=== PATIENT | male | born 1990 | race Caucasian/White ===

== ENCOUNTER → 2016-10-22 | Outpatient (REF) | payer SELFPAY ==
[2016-10-29 10:13] LABS: BENZODIAZEPINES, URINE SCREEN Negative ng/mL (Cutoff=200); METHADONE, URINE SCREEN Negative ng/mL (Cutoff=300); pH, URINE 6.6 (4.5-8.9)
== END | disposition home or self-care (01) ==
LOC: M SFHCPLAZ 16:57
PROVIDERS: ATTEND Family Medicine
DX: R35.0 Frequency of micturition (principal); R36.9 Urethral discharge, unspecified; F15.10 Other stimulant abuse, uncomplicated

== ENCOUNTER 2016-10-24 02:57 | Emergency (ER) | payer SELFPAY ==
[2016-10-24] MEDS ORDERED: ALPRAZolam 0.25 MG TAB As Ordered ONE (05:01)
--- NOTE | 2016-10-24 05:14 | EDDOCDS ---
Physician Documentation [facility] Name: Colt Wilson Age: 26 yrs Sex: Male : 1990 Arrival Date: 10/24/2016 Time: 02:57 Bed [facility] Private MD: Disposition: 10/24/16 04:30 Discharged to Home/Self Care. Impression: Adverse effect of amphetamines - meth withdrawl. - Condition is Stable. - Discharge Instructions: Stimulant Use Disorder-Methamphetamines. - Prescriptions for Xanax 0.5 mg Oral Tablet - take 1 tablet by ORAL route every 8 hours As needed MDD: 3 tabs; 10 tablet. - Medication Reconciliation, Local Pharmacy Hours form. - Follow up: Referral list, As provided by PFS; When: 1 - 2 days; Reason: Continuance of care. - Problem is an acute exacerbation. - Symptoms have improved. Historical: - Allergies: No known drug Allergies; - Home Meds: 1. none - PMHx: drug abuse; - PSHx: Hernia repair- Umbilical; - Social history: Smoking status: Chewing Tobacco No barriers to communication noted, The patient speaks fluent Slovenian, Speaks appropriately for age. - Family history: Not pertinent. - : The pt / caregiver states he / she is not on anticoagulants. Home medication list is obtained from the patient. - Exposure Risk Screening:: None identified. Vital Signs: 10/24 03:17 BP 138 / 97; Pulse 87; Resp 16; Temp 95.9; Pulse Ox 96% on R/A; Weight 65.77 kg / 145 cz lbs; Height 5 ft. 10 in. (177.80 cm); 05:11 BP 124 / 50; Pulse 76; Resp 18; Temp 96.9(T); Pulse Ox 99% on R/A; Pain 0/10; cp1 03:17 Body Mass Index 20.81 (65.77 kg, 177.80 cm) cz MDM: 03:13 [facility] Payment Agreement was scanned into [employer] and attached to record. hs2 04:29 ALPRAZolam Tablet 0.25 mg PO once ordered. mm11 05:09 Financial registration complete. hs2 Administered Medications: 05:11 Drug: ALPRAZolam 0.25 mg [alprazolam 0.25 mg tablet (1 tabs)] Route: PO; cp1 Signatures: Fernando Cabezas, RN RN cz Martin Ramirez, DO mm11 Mala Bailey,INTERNATIONAL TAX MANAGER INTERNATIONAL TAX MANAGER cp1 Dorothy Serna, Reg Reg hs2 The chart was reviewed and I authenticate all verbal orders and agree with the evaluation and treatment provided.Attachments: 03:13 [facility] Payment Agreement hs2 MTDD
--- NOTE | 2016-10-24 05:14 | EDDOCDS ---
Nurse's Notes [facility] Name: Colt Wilson Age: 26 yrs Sex: Male : 1990 Arrival Date: 10/24/2016 Time: 02:57 Bed [facility] Private MD: Diagnosis: Adverse effect of amphetamines-meth withdrawl Presentation: 10/24 03:09 Presenting complaint: Patient states: he uses meth last used Tuesday morning having cz anxiety issues rambling thoughts pt denies SI/HI. pt states has quit using before but keeps relapsing. Mental Health Triage Level: Level 1- Pt displays no suicidal or homicidal ideations and does not appear to be a danger to self or others. Adult Sepsis Screening: The patient does not have new or worsening altered mentation. Patient's respiratory rate is less than 22. Systolic blood pressure is greater than 100. Patient has a qSOFA score of 0- Negative Sepsis Screen. Mental Health Triage Level: Level 1- Pt displays no suicidal or homicidal ideations and does not appear to be a danger to self or others. Suicide/Homicide risk assessment- the patient denies having any suicidal and/or homicidal ideations and does not present with any other emotional, behavioral or mental health complaints. Status: Patient is not a director nursing service or dependent. Transition of care: patient was not received from another setting of care. 03:09 Acuity: CRISTELA Level 3 cz 03:09 Method Of Arrival: Walkin/Carried/Asstd cz Triage Assessment: 03:17 General: Appears distressed, Behavior is anxious. Pain: Denies pain. HIV screening [facility] for this visit Offered previously. Historical: - Allergies: No known drug Allergies; - Home Meds: 1. none - PMHx: drug abuse; - PSHx: Hernia repair- Umbilical; - Social history: Smoking status: Chewing Tobacco No barriers to communication noted, The patient speaks fluent Indonesian, Speaks appropriately for age. - Family history: Not pertinent. - : The pt / caregiver states he / she is not on anticoagulants. Home medication list is obtained from the patient. - Exposure Risk Screening:: None identified. Screenin:11 Screening information is obtained from the patient. Fall risk: No risks identified. cp1 Assistance ADL's: requires no assistance with activities of daily living. Abuse/DV Screen: The patient / caregiver reports he/she is: not in a situation that causes fear, pain or injury. Nutritional screening: No deficits noted. Advance Directives: Unable to assess Advance Directive status due to pt condition. home support is inadequate. Assessment: 04:09 General: Appears comfortable, Behavior is anxious, cooperative. Pain: Denies pain. cp1 Respiratory: Respiratory effort is even, unlabored, Respiratory pattern is regular, symmetrical. 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 He jl reports last use was 8 or 9:00 am yesterday & that he has been "coming down" since. He describes a long h/o struggles with this addiction & how it has cost him relationships, including his & children. He reports currently living with his parents & was given a ride here by a friend. He reports having an extensive treatment hx, including 2 residential inpatient programs, as well as outpatient programs. He denies having any thoughts of harming himself or anyone else & denies having any mental health problems, noting that his concerns are solely with his addiction. He states that he saw his PCP (Dr. Rueda) on Tuesday, who made immediate arrangements for him to see Lucia at [facility]. He states that this went well & that it was recommended that he continue with care there & then another inpatient program. He is aware that [facility] does not offer any inpatient addictions services & that no rehab may be arranged from the ED this morning. He has been encouraged to follow up with [facility] again tomorrow (Tuesday) & has been provided with taxi voucher to ensure safe transport home. He denies having any additional D/C planning needs at this time. Support extended. Vital Signs: 03:17 BP 138 / 97; Pulse 87; Resp 16; Temp 95.9; Pulse Ox 96% on R/A; Weight 65.77 kg; Height cz 5 ft. 10 in. (177.80 cm); 05:11 BP 124 / 50; Pulse 76; Resp 18; Temp 96.9(T); Pulse Ox 99% on R/A; Pain 0/10; cp1 03:17 Body Mass Index 20.81 (65.77 kg, 177.80 cm) cz Vitals: 03:17 Log In Time: October 24, 2016 at 02:57. cz ED Course: 03:08 Patient visited by Renate Moran. gjb 03:08 Patient moved to Waiting gjb 03:13 [facility] Payment Agreement was scanned into [employer] and attached to record. hs2 03:14 Triage Initiated cz 03:19 Patient moved to [facility] cz 03:30 Patient visited by Mala Bailey LPN. cp1 03:35 Patient visited by Alberto Mosqueda. tr 03:45 Patient visited by Alberto Mosqueda. tr 03:45 Martin Ramirez DO is Attending Physician. mm11 03:45 Patient visited by Martin Ramirez DO. mm11 03:48 Patient visited by Alberto Mosqueda. tr 03:58 Patient visited by Alberto Mosqueda. tr 04:18 Patient visited by Alberto Mosqueda. tr 04:29 Patient visited by Martin Ramirez DO. mm11 04:30 Referral list, As provided by [facility] is Referral Physician. mm11 04:32 Patient visited by Alberto Mosqueda. tr 04:44 Patient visited by Alberto Mosqueda. tr 04:58 Patient visited by Alberto Mosqueda. tr 05:11 The patient / caregiver is instructed regarding the plan of care and ED course. cp1 05:11 No IV's were initiated during this patient's visit. No procedures done that require cp1 assistance. Administered Medications: 05:11 Drug: ALPRAZolam 0.25 mg [alprazolam 0.25 mg tablet (1 tabs)] Route: PO; cp1 Order Results: There are currently no results for this order. Outcome: 04:30 Discharge ordered by Provider. mm11 05:11 Discharge Assessment: Patient awake, alert and oriented x 3. No cognitive and/or cp1 functional deficits noted. Patient verbalized understanding of disposition instructions. patient administered narcotics - yes. Pt provided with safe discharge. The following High Risk Discharge criteria are identified: None. Discharged to home ambulatory. Condition: stable. Discharge instructions given to patient, Instructed on discharge instructions, follow up and referral plans. medication usage, Demonstrated understanding of instructions, medications, Pt was receptive of discharge instructions/ teaching. Prescriptions given X 1. No special radiology studies were completed. Property sent home with patient. :Personal belongings accompany Pt. 05:12 Patient left the ED. cp1 Signatures: Fernando Cabezas, RN RN cz Dustin Pratt, PSA PSA Alberto Smith Matthew, DO mm11 Mala Bailey LPN BIOSTATISTICS TEACHER cp1 Renate Moranb Dorothy Serna, Reg Reg hs2 MTDD
--- NOTE | 2016-10-26 12:28 | EDDOCDS ---
Physician Documentation [facility] Name: Colt Wilson Age: 26 yrs Sex: Male : 1990 Arrival Date: 10/24/2016 Time: 02:57 Bed [facility] Private MD: Disposition: 10/24/16 04:30 Discharged to Home/Self Care. Impression: Adverse effect of amphetamines - meth withdrawl. - Condition is Stable. - Discharge Instructions: Stimulant Use Disorder-Methamphetamines. - Prescriptions for Xanax 0.5 mg Oral Tablet - take 1 tablet by ORAL route every 8 hours As needed MDD: 3 tabs; 10 tablet. - Medication Reconciliation, Local Pharmacy Hours form. - Follow up: Referral list, As provided by PFS; When: 1 - 2 days; Reason: Continuance of care. - Problem is an acute exacerbation. - Symptoms have improved. Historical: - Allergies: No known drug Allergies; - Home Meds: 1. none - PMHx: drug abuse; - PSHx: Hernia repair- Umbilical; - Social history: Smoking status: Chewing Tobacco No barriers to communication noted, The patient speaks fluent Ethiopian, Speaks appropriately for age. - Family history: Not pertinent. - : The pt / caregiver states he / she is not on anticoagulants. Home medication list is obtained from the patient. - Exposure Risk Screening:: None identified. Vital Signs: 10/24 03:17 BP 138 / 97; Pulse 87; Resp 16; Temp 95.9; Pulse Ox 96% on R/A; Weight 65.77 kg / 145 cz lbs; Height 5 ft. 10 in. (177.80 cm); 05:11 BP 124 / 50; Pulse 76; Resp 18; Temp 96.9(T); Pulse Ox 99% on R/A; Pain 0/10; cp1 03:17 Body Mass Index 20.81 (65.77 kg, 177.80 cm) cz MDM: 03:13 [place] [place] Agreement was scanned into [email or web address] and attached to record. hs2 04:29 ALPRAZolam Tablet 0.25 mg PO once ordered. mm11 05:09 Financial registration complete. hs2 07:46 T-Sheet-- Draft Copy was scanned into [email or web address] and attached to record. [facility] Administered Medications: 05:11 Drug: ALPRAZolam 0.25 mg [alprazolam 0.25 mg tablet (1 tabs)] Route: PO; cp1 05:12 Follow up: Response: Pt left department before re-evaluation is appropriate cp1 Signatures: Fernando Cabezas, KATELYNN RN cz Martin Ramirez, DO mm11 Mala Bailey LPN LPN cp1 Dorothy Serna, Reg Reg hs2 Lorenza Kuar [facility] The chart was reviewed and I authenticate all verbal orders and agree with the evaluation and treatment provided.Attachments: 03:13 [facility] Payment Agreement hs2 07:46 T-Sheet-- Draft Copy [facility] Chart Complete MTDD
--- NOTE | 2016-10-26 12:28 | EDDOCDS ---
Physician Documentation [facility] Name: Colt Wilson Age: 26 yrs Sex: Male : 1990 Arrival Date: 10/24/2016 Time: 02:57 Bed [facility] Private MD: Disposition: 10/24/16 04:30 Discharged to Home/Self Care. Impression: Adverse effect of amphetamines - meth withdrawl. - Condition is Stable. - Discharge Instructions: Stimulant Use Disorder-Methamphetamines. - Prescriptions for Xanax 0.5 mg Oral Tablet - take 1 tablet by ORAL route every 8 hours As needed MDD: 3 tabs; 10 tablet. - Medication Reconciliation, Local Pharmacy Hours form. - Follow up: Referral list, As provided by PFS; When: 1 - 2 days; Reason: Continuance of care. - Problem is an acute exacerbation. - Symptoms have improved. Historical: - Allergies: No known drug Allergies; - Home Meds: 1. none - PMHx: drug abuse; - PSHx: Hernia repair- Umbilical; - Social history: Smoking status: Chewing Tobacco No barriers to communication noted, The patient speaks fluent Dutch, Speaks appropriately for age. - Family history: Not pertinent. - : The pt / caregiver states he / she is not on anticoagulants. Home medication list is obtained from the patient. - Exposure Risk Screening:: None identified. Vital Signs: 10/24 03:17 BP 138 / 97; Pulse 87; Resp 16; Temp 95.9; Pulse Ox 96% on R/A; Weight 65.77 kg / 145 cz lbs; Height 5 ft. 10 in. (177.80 cm); 05:11 BP 124 / 50; Pulse 76; Resp 18; Temp 96.9(T); Pulse Ox 99% on R/A; Pain 0/10; cp1 03:17 Body Mass Index 20.81 (65.77 kg, 177.80 cm) cz MDM: 03:13 [place] [place] Agreement was scanned into [employer] and attached to record. hs2 04:29 ALPRAZolam Tablet 0.25 mg PO once ordered. mm11 05:09 Financial registration complete. hs2 07:46 T-Sheet-- Draft Copy was scanned into [employer] and attached to record. [facility] Administered Medications: 05:11 Drug: ALPRAZolam 0.25 mg [alprazolam 0.25 mg tablet (1 tabs)] Route: PO; cp1 05:12 Follow up: Response: Pt left department before re-evaluation is appropriate cp1 Signatures: Fernando Cabezas, KATELYNN RN cz Martin Ramirez, DO mm11 Mala Bailey LPN LPN cp1 Dorothy Serna, Reg Reg hs2 Lorenza Kaur [facility] The chart was reviewed and I authenticate all verbal orders and agree with the evaluation and treatment provided.Attachments: 03:13 [facility] Payment Agreement hs2 07:46 T-Sheet-- Draft Copy [facility] Chart Complete MTDD
--- NOTE | 2016-10-26 12:28 | EDDOCDS ---
Nurse's Notes [facility] Name: Colt Wilson Age: 26 yrs Sex: Male : 1990 Arrival Date: 10/24/2016 Time: 02:57 Bed [facility] Private MD: Diagnosis: Adverse effect of amphetamines-meth withdrawl Presentation: 10/24 03:09 Presenting complaint: Patient states: he uses meth last used Tuesday morning having cz anxiety issues rambling thoughts pt denies SI/HI. pt states has quit using before but keeps relapsing. Mental Health Triage Level: Level 1- Pt displays no suicidal or homicidal ideations and does not appear to be a danger to self or others. Adult Sepsis Screening: The patient does not have new or worsening altered mentation. Patient's respiratory rate is less than 22. Systolic blood pressure is greater than 100. Patient has a qSOFA score of 0- Negative Sepsis Screen. Mental Health Triage Level: Level 1- Pt displays no suicidal or homicidal ideations and does not appear to be a danger to self or others. Suicide/Homicide risk assessment- the patient denies having any suicidal and/or homicidal ideations and does not present with any other emotional, behavioral or mental health complaints. Status: Patient is not a water softener service supervisor or dependent. Transition of care: patient was not received from another setting of care. 03:09 Acuity: CRISTELA Level 3 cz 03:09 Method Of Arrival: Walkin/Carried/Asstd cz Triage Assessment: 03:17 General: Appears distressed, Behavior is anxious. Pain: Denies pain. HIV screening [facility] for this visit Offered previously. Historical: - Allergies: No known drug Allergies; - Home Meds: 1. none - PMHx: drug abuse; - PSHx: Hernia repair- Umbilical; - Social history: Smoking status: Chewing Tobacco No barriers to communication noted, The patient speaks fluent Cook Islander, Speaks appropriately for age. - Family history: Not pertinent. - : The pt / caregiver states he / she is not on anticoagulants. Home medication list is obtained from the patient. - Exposure Risk Screening:: None identified. Screenin:11 Screening information is obtained from the patient. Fall risk: No risks identified. cp1 Assistance ADL's: requires no assistance with activities of daily living. Abuse/DV Screen: The patient / caregiver reports he/she is: not in a situation that causes fear, pain or injury. Nutritional screening: No deficits noted. Advance Directives: Unable to assess Advance Directive status due to pt condition. home support is inadequate. Assessment: 04:09 General: Appears comfortable, Behavior is anxious, cooperative. Pain: Denies pain. cp1 Respiratory: Respiratory effort is even, unlabored, Respiratory pattern is regular, symmetrical. 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 He jl reports last use was 8 or 9:00 am yesterday & that he has been "coming down" since. He describes a long h/o struggles with this addiction & how it has cost him relationships, including his & children. He reports currently living with his parents & was given a ride here by a friend. He reports having an extensive treatment hx, including 2 correction inpatient programs, as well as outpatient programs. He denies having any thoughts of harming himself or anyone else & denies having any mental health problems, noting that his concerns are solely with his addiction. He states that he saw his PCP (Dr. Rueda) on Tuesday, who made immediate arrangements for him to see Lucia at [facility]. He states that this went well & that it was recommended that he continue with care there & then another inpatient program. He is aware that [facility] does not offer any inpatient addictions services & that no rehab may be arranged from the ED this morning. He has been encouraged to follow up with [facility] again tomorrow (Tuesday) & has been provided with taxi voucher to ensure safe transport home. He denies having any additional D/C planning needs at this time. Support extended. Vital Signs: 03:17 BP 138 / 97; Pulse 87; Resp 16; Temp 95.9; Pulse Ox 96% on R/A; Weight 65.77 kg; Height cz 5 ft. 10 in. (177.80 cm); 05:11 BP 124 / 50; Pulse 76; Resp 18; Temp 96.9(T); Pulse Ox 99% on R/A; Pain 0/10; cp1 03:17 Body Mass Index 20.81 (65.77 kg, 177.80 cm) cz Vitals: 03:17 Log In Time: October 24, 2016 at 02:57. cz ED Course: 03:08 Patient visited by Renate Moran. gjb 03:08 Patient moved to Waiting gjb 03:13 [facility] Payment Agreement was scanned into [employer] and attached to record. hs2 03:14 Triage Initiated cz 03:19 Patient moved to [facility] cz 03:30 Patient visited by Mala Bailey LPN. cp1 03:35 Patient visited by Alberto Mosqueda. tr 03:45 Patient visited by Alberto Mosqueda. tr 03:45 Martin Ramirez DO is Attending Physician. mm11 03:45 Patient visited by Martin Ramirez DO. mm11 03:48 Patient visited by Alberto Mosqueda. tr 03:58 Patient visited by Alberto Mosqueda. tr 04:18 Patient visited by Alberto Mosqueda. tr 04:29 Patient visited by aMrtin Ramirez DO. mm11 04:30 Referral list, As provided by [facility] is Referral Physician. mm11 04:32 Patient visited by Alberto Mosqueda. tr 04:44 Patient visited by Alberto Mosqueda. tr 04:58 Patient visited by Alberto Mosqueda. tr 05:11 The patient / caregiver is instructed regarding the plan of care and ED course. cp1 05:11 No IV's were initiated during this patient's visit. No procedures done that require cp1 assistance. 06:03 Patient name changed from Colt\\S\\\\S\\Kraeger\\S\\ to Colt\\S\\Tariq\\S\\Kraeger. EDMS 07:46 T-Sheet-- Draft Copy was scanned into [employer] and attached to record. h Administered Medications: 05:11 Drug: ALPRAZolam 0.25 mg [alprazolam 0.25 mg tablet (1 tabs)] Route: PO; cp1 05:12 Follow up: Response: Pt left department before re-evaluation is appropriate cp1 Order Results: There are currently no results for this order. Outcome: 04:30 Discharge ordered by Provider. mm11 05:11 Discharge Assessment: Patient awake, alert and oriented x 3. No cognitive and/or cp1 functional deficits noted. Patient verbalized understanding of disposition instructions. patient administered narcotics - yes. Pt provided with safe discharge. The following High Risk Discharge criteria are identified: None. Discharged to home ambulatory. Condition: stable. Discharge instructions given to patient, Instructed on discharge instructions, follow up and referral plans. medication usage, Demonstrated understanding of instructions, medications, Pt was receptive of discharge instructions/ teaching. Prescriptions given X 1. No special radiology studies were completed. Property sent home with patient. :Personal belongings accompany Pt. 05:12 Patient left the ED. cp1 Signatures: Dispatcher [employer] EDMS Fernando Cabezas RN RN Dustin Gtz PSA PSA jl Rasmussen, Tim tr Maynard, Matthew, DO mm11 Mala Bailey,SOLAR SITE ASSESSMENT SPECIALIST SOLAR SITE ASSESSMENT SPECIALIST cp1 Renate Moran Hillary, Reg Reg hs2 Lorenza Kaur Chart Complete MTDD
== END 2016-10-24 05:12 | disposition home or self-care (01) ==
LOC: M ED 02:57
DX: F15.93 Other stimulant use, unspecified with withdrawal (principal); F17.220 Nicotine dependence, chewing tobacco, uncomplicated

== ENCOUNTER 2016-11-05 19:37 | Emergency (ER) | payer SELFPAY ==
[2016-11-05] MEDS ORDERED: OLANZapine 5 MG TAB As Ordered ONE (21:37)
[2016-11-05 21:52] LABS: ANION GAP 6 MEQ/L (8-16); BLOOD UREA NITROGEN 26 MG/DL (7-18); CALCIUM LEVEL 9.2 MG/DL (8.5-10.1); CARBON DIOXIDE LEVEL 31 MEQ/L (21-32); CHLORIDE LEVEL 103 MEQ/L (98-107); CREATININE FOR GFR 1.03 MG/DL (0.70-1.30); GLOMERULAR FILTRATION RATE > 60.0 (>60); GLUCOSE, FASTING 86 MG/DL (70-105); POTASSIUM SERUM 4.6 MEQ/L (3.5-5.1); SODIUM LEVEL 140 MEQ/L (136-145)
--- NOTE | 2016-11-05 22:47 | EDDOCDS ---
Nurse's Notes [facility] Name: Colt Wilson Age: 26 yrs Sex: Male : 1990 Arrival Date: 11/05/2016 Time: 19:37 Bed I8 / 16 Private MD: Zachariah Rueda D Diagnosis: Encounter for other general examination-chronic substance abuse Presentation: 11/05 19:56 Presenting complaint: Patient states: here for Xanax refill. Was seen here for refill rs3 on the . Was out of Xanax for 7 days. 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 Adult Sepsis Screening: The patient does not have new or worsening altered mentation. Patient's respiratory rate is less than 22. Systolic blood pressure is greater than 100. Patient has a qSOFA score of 0- Negative Sepsis Screen. Suicide/Homicide risk assessment- the patient denies having any suicidal and/or homicidal ideations and does not present with any other emotional, behavioral or mental health complaints. Status: Patient is not a maintenance service supervisor or dependent. Transition of care: patient was not received from another setting of care. 19:56 Acuity: CRISTELA Level 5 rs3 19:56 Method Of Arrival: Walkin/Carried/Asstd rs3 Triage Assessment: 20:02 General: Appears in no apparent distress. Pain: Denies pain. HIV screening NA for this rs3 visit Offered previously. Historical: - Allergies: no known allergies; - Home Meds: 1. Xanax 0.5 mg Oral tab 1 tab twice a day (Last dose: 10/29/2016) - PMHx: drug abuse; - PSHx: Hernia repair- Umbilical; - Social history: Smoking status: Chewing Tobacco No barriers to communication noted, The patient speaks fluent Mongolian. - Family history: Not pertinent. - : The pt / caregiver states he / she is not on anticoagulants. Home medication list is obtained from the patient. - Exposure Risk Screening:: None identified. Screenin:42 Screening information is obtained from the patient. Fall risk: No risks identified. jmb Assistance ADL's: requires no assistance with activities of daily living. Abuse/DV Screen: The patient / caregiver reports he/she is: not in a situation that causes fear, pain or injury. Nutritional screening: No deficits noted. Advance Directives: Currently, there is no health care proxy. There is no active DNR order. There is no living will. There is no Power of Primary Special Education Teacher. home support is adequate. Assessment: 21:00 General: Appears in no apparent distress, comfortable, Behavior is appropriate for age, jmb cooperative. Neurological: Level of Consciousness is awake, alert, obeys commands, Oriented to person, place, time, School Manager are equal bilaterally Speech is normal, Facial symmetry appears normal, Facial symmetry: tongue is midline. Cardiovascular: Capillary refill < 3 seconds Heart tones S1 S2 present Pulses are all present. Rhythm is regular. Respiratory: Airway is patent Respiratory effort is even, unlabored, Respiratory pattern is regular, symmetrical, Breath sounds are clear bilaterally. GI: Abdomen is non- distended Bowel sounds present X 4 quads. Abd is soft and non tender X 4 quads. Derm: Skin is pink, warm & dry. Musculoskeletal: Range of motion intact in all extremities. 22:42 General: Patient instructed on discharge instructions. Patient asked if there were any [facility] questions regarding discharge, patient stated no. Patient signed discharge instructions. Patient discharged in stable condition. . Vital Signs: 19:44 BP 134 / 80; Pulse 100; Resp 16; Temp 98.4; Pulse Ox 100% ; Weight 70.76 kg; Height 5 elp ft. 10 in. (177.80 cm); Pain 0/10; 22:42 BP 130 / 78; Pulse 80; Resp 18; Temp 98.6(O); Pulse Ox 100% on R/A; Pain 0/10; jmb 19:44 Body Mass Index 22.38 (70.76 kg, 177.80 cm) [facility] Vitals: 19:44 Log In Time: November 05, 2016 at 19:41. [facility] ED Course: 19:42 Patient visited by Tessa Moreira PCA. elp 19:42 Zachariah Rueda is Private Physician. elp 19:42 Patient moved to Waiting elp 19:45 Patient visited by Tessa Moreira PCA. elp 19:45 Patient moved to Pre RCE elp 20:01 Triage Initiated rs3 20:32 Patient moved to I8 Oct 20:38 Axel Negrete DO is Attending Physician. cs11 20:38 Patient visited by Axel Negrete DO. cs11 21:25 Patient visited by Mala Bailey LPN. cp1 21:25 Cardiac Marker Panel Sent. cp1 21:25 MED Profile Sent. cp1 21:41 Patient visited by Mala Bailey LPN. cp1 22:05 Patient visited by Mala Bailey LPN. cp1 22:06 PSA Outpatient Referrals was scanned into [employer] and attached to record. jl 22:42 The patient / caregiver is instructed regarding the plan of care and ED course. jmb 22:42 No IV's were initiated during this patient's visit. No procedures done that require jmb assistance. Administered Medications: 21:39 Drug: OLANZapine 10 mg [olanzapine 5 mg tablet (2 tabs)] Route: PO; cp1 Order Results: Lab Order: MED Profile; SPEC'M 11/05/16 21:19 Test: GLUCOSE, FASTING; Value: 86; Range: 70-105; Units: MG/DL; Status: F Test: BLOOD UREA NITROGEN; Value: 26; Range: 7-18; Abnormal: Above high normal; Units: MG/DL; Status: F Test: CREATININE FOR GFR; Value: 1.03; Range: 0.70-1.30; Units: MG/DL; Status: F Test: GLOMERULAR FILTRATION RATE; Value: > 60.0; Range: >60; Status: F Test: SODIUM LEVEL; Value: 140; Range: 136-145; Units: MEQ/L; Status: F Test: POTASSIUM SERUM; Value: 4.6; Range: 3.5-5.1; Units: MEQ/L; Status: F Test: CHLORIDE LEVEL; Value: 103; Range: 98-107; Units: MEQ/L; Status: F Test: CARBON DIOXIDE LEVEL; Value: 31; Range: 21-32; Units: MEQ/L; Status: F Test: ANION GAP; Value: 6; Range: 8-16; Abnormal: Below low normal; Units: MEQ/L; Status: F Test: CALCIUM LEVEL; Value: 9.2; Range: 8.5-10.1; Units: MG/DL; Status: F Test Note: ; Units are mL/min/1.73 m2 Chronic Kidney Disease Staging per NKF: Stage I & II GFR >=60 Normal to Mildly Decreased Stage III GFR 30-59 Moderately Decreased Stage IV GFR 15-29 Severely Decreased Stage V GFR <15 Very Little GFR Left ESRD GFR <15 on STUDY MANAGER Lab Order: Cardiac Marker Panel; JASON'M 11/05/16 21:19 Test: CPK CREATINE PHOSPHOKINASE; Value: 205; Range: 39-308; Units: U/L; Status: F Test: CK-MB VALUE MASS; Value: 3.0; Range: 0.0-3.6; Units: NG/ML; Status: F Test: MB/CK RELATIVE INDEX; Value: 1.46; Range: < OR =4; Status: F Test: TROPONIN I; Value: < 0.02; Range: < 0.10; Units: NG/ML; Status: F Test Note: ; DIAGNOSIS CRITERIA MMB ng/ml Relative Index (RI) NON-AMI < or = 5 N/A CARTER ZONE > 5 < or = 4 AMI > 5 > 4 Outcome: 22:32 Discharge ordered by Provider. cs11 22:42 Discharge Assessment: Patient awake, alert and oriented x 3. No cognitive and/or jmb functional deficits noted. Patient verbalized understanding of disposition instructions. Patient awake and alert. obeys commands, Oriented to person, place and time. Patient verbalized understanding of disposition instructions. Patient has no functional deficits. patient administered narcotics - no. The following High Risk Discharge criteria are identified: None. Discharged to home ambulatory. Condition: stable Condition: improved. Discharge instructions given to patient, Instructed on discharge instructions, follow up and referral plans. medication usage, Demonstrated understanding of instructions, medications, Pt was receptive of discharge instructions/ teaching. Prescriptions given X 1. No special radiology studies were completed. Property sent home with patient. 22:46 Patient left the ED. wade Signatures: Angeli Jackson RN Dustin Marie, RASHID PSA Devika Durán RN RN rs3 Mala Bailey LPN FOUNDRY PATTERNMAKER cp1 Axel Negrete, DO cs11 Tessa Moreira, JON SERVICE DISMANTLER Avila Polo RN RN jmb MTDD
--- NOTE | 2016-11-05 22:47 | EDDOCDS ---
Physician Documentation [facility] Name: Colt Wilson Age: 26 yrs Sex: Male : 1990 Arrival Date: 11/05/2016 Time: 19:37 Bed I8 / 16 Private MD: Zachariah Rueda D Disposition: 11/05/16 22:32 Discharged to Home/Self Care. Impression: Encounter for other general examination - chronic substance abuse. - Condition is Stable. - Prescriptions for Zyprexa 10 mg Oral Tablet - take 1 tablet by ORAL route once daily; 10 tablet. - Medication Reconciliation, Local Pharmacy Hours form. - Follow up: Private Physician; When: As previously arranged. - Problem is chronic. - Symptoms have improved. Historical: - Allergies: no known allergies; - Home Meds: 1. Xanax 0.5 mg Oral tab 1 tab twice a day (Last dose: 10/29/2016) - PMHx: drug abuse; - PSHx: Hernia repair- Umbilical; - Social history: Smoking status: Chewing Tobacco No barriers to communication noted, The patient speaks fluent Bahamian. - Family history: Not pertinent. - : The pt / caregiver states he / she is not on anticoagulants. Home medication list is obtained from the patient. - Exposure Risk Screening:: None identified. Vital Signs: 11/05 19:44 BP 134 / 80; Pulse 100; Resp 16; Temp 98.4; Pulse Ox 100% ; Weight 70.76 kg / 156 lbs; elp Height 5 ft. 10 in. (177.80 cm); Pain 0/10; 22:42 BP 130 / 78; Pulse 80; Resp 18; Temp 98.6(O); Pulse Ox 100% on R/A; Pain 0/10; jmb 19:44 Body Mass Index 22.38 (70.76 kg, 177.80 cm) elp MDM: 21:16 MED Profile Ordered. EDMS 21:16 Cardiac Marker Panel Ordered. EDMS 21:34 OLANZapine 10 mg PO now ordered. cs11 21:37 Consult PFS/PSA/Automatic Spooler Operator ordered. cs11 22:04 MED Profile Reviewed. cs11 22:04 Cardiac Marker Panel Reviewed. cs11 22:05 Consult PFS/PSA/Automatic Spooler Operator complete. cp1 22:06 PSA Outpatient Referrals was scanned into [employer] and attached to record. jl Administered Medications: 21:39 Drug: OLANZapine 10 mg [olanzapine 5 mg tablet (2 tabs)] Route: PO; cp1 Signatures: Dispatcher [employer] EDDustin Beltran, Devika Henderson,RN RN rs3 Mala Bailey,BROWNFIELD PROGRAM COORDINATOR BROWNFIELD PROGRAM COORDINATOR cp1 Axel Negrete DO DO cs11 Avila Hassan RN RN jmb MTDD
--- NOTE | 2016-11-07 23:47 | EDDOCDS ---
Physician Documentation [facility] Name: Colt Wilson Age: 26 yrs Sex: Male : 1990 Arrival Date: 11/05/2016 Time: 19:37 Bed I8 / 16 Private MD: Zachariah Rueda D Disposition: 11/05/16 22:32 Discharged to Home/Self Care. Impression: Encounter for other general examination - chronic substance abuse. - Condition is Stable. - Prescriptions for Zyprexa 10 mg Oral Tablet - take 1 tablet by ORAL route once daily; 10 tablet. - Medication Reconciliation, Local Pharmacy Hours form. - Follow up: Private Physician; When: As previously arranged. - Problem is chronic. - Symptoms have improved. Historical: - Allergies: no known allergies; - Home Meds: 1. Xanax 0.5 mg Oral tab 1 tab twice a day (Last dose: 10/29/2016) - PMHx: drug abuse; - PSHx: Hernia repair- Umbilical; - Social history: Smoking status: Chewing Tobacco No barriers to communication noted, The patient speaks fluent Latvian. - Family history: Not pertinent. - : The pt / caregiver states he / she is not on anticoagulants. Home medication list is obtained from the patient. - Exposure Risk Screening:: None identified. Vital Signs: 11/05 19:44 BP 134 / 80; Pulse 100; Resp 16; Temp 98.4; Pulse Ox 100% ; Weight 70.76 kg / 156 lbs; elp Height 5 ft. 10 in. (177.80 cm); Pain 0/10; 22:42 BP 130 / 78; Pulse 80; Resp 18; Temp 98.6(O); Pulse Ox 100% on R/A; Pain 0/10; jmb 19:44 Body Mass Index 22.38 (70.76 kg, 177.80 cm) elp MDM: 21:16 MED Profile Ordered. EDMS 21:16 Cardiac Marker Panel Ordered. EDMS 21:34 OLANZapine 10 mg PO now ordered. cs11 21:37 Consult PFS/PSA/Aircraft Lay Out Worker ordered. cs11 22:04 MED Profile Reviewed. cs11 22:04 Cardiac Marker Panel Reviewed. cs11 22:05 Consult PFS/PSA/Aircraft Lay Out Worker complete. cp1 22:06 PSA Outpatient Referrals was scanned into [employer] and attached to record. jl 22:50 Financial registration complete. zo 22:50 [facility] Payment Agreement was scanned into [employer] and attached to record. zo 11/06 11:03 T-Sheet-- Draft Copy was scanned into [employer] and attached to record. gb Administered Medications: 11/05 21:39 Drug: OLANZapine 10 mg [olanzapine 5 mg tablet (2 tabs)] Route: PO; cp1 Signatures: Dispatcher [employer] EDMS Dustin Pratt, PSA PSA jl Bella Lorenzo, Feliberto Reg gb Francois Zamudio Rosemary,RN RN rs3 Mala Bailey,ACQUISITIONS LOGISTICS ANALYST ACQUISITIONS LOGISTICS ANALYST cp1 Axel Negrete DO DO cs11 Avila HassanRN RN luciab The chart was reviewed and I authenticate all verbal orders and agree with the evaluation and treatment provided.Attachments: 22:50 [facility] Payment Agreement zo 11/06 11:03 T-Sheet-- Draft Copy gb Chart Complete MTDD
--- NOTE | 2016-11-07 23:47 | EDDOCDS ---
Nurse's Notes [facility] Name: Colt Wilson Age: 26 yrs Sex: Male : 1990 Arrival Date: 11/05/2016 Time: 19:37 Bed I8 / 16 Private MD: Zachariah Rueda D Diagnosis: Encounter for other general examination-chronic substance abuse Presentation: 11/05 19:56 Presenting complaint: Patient states: here for Xanax refill. Was seen here for refill rs3 on the . Was out of Xanax for 7 days. 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 Adult Sepsis Screening: The patient does not have new or worsening altered mentation. Patient's respiratory rate is less than 22. Systolic blood pressure is greater than 100. Patient has a qSOFA score of 0- Negative Sepsis Screen. Suicide/Homicide risk assessment- the patient denies having any suicidal and/or homicidal ideations and does not present with any other emotional, behavioral or mental health complaints. Status: Patient is not a web services architect or dependent. Transition of care: patient was not received from another setting of care. 19:56 Acuity: CRISTELA Level 5 rs3 19:56 Method Of Arrival: Walkin/Carried/Asstd rs3 Triage Assessment: 20:02 General: Appears in no apparent distress. Pain: Denies pain. HIV screening NA for this rs3 visit Offered previously. Historical: - Allergies: no known allergies; - Home Meds: 1. Xanax 0.5 mg Oral tab 1 tab twice a day (Last dose: 10/29/2016) - PMHx: drug abuse; - PSHx: Hernia repair- Umbilical; - Social history: Smoking status: Chewing Tobacco No barriers to communication noted, The patient speaks fluent [place] Islander. - Family history: Not pertinent. - : The pt / caregiver states he / she is not on anticoagulants. Home medication list is obtained from the patient. - Exposure Risk Screening:: None identified. Screenin:42 Screening information is obtained from the patient. Fall risk: No risks identified. jmb Assistance ADL's: requires no assistance with activities of daily living. Abuse/DV Screen: The patient / caregiver reports he/she is: not in a situation that causes fear, pain or injury. Nutritional screening: No deficits noted. Advance Directives: Currently, there is no health care proxy. There is no active DNR order. There is no living will. There is no Power of Window Glass Installer. home support is adequate. Assessment: 21:00 General: Appears in no apparent distress, comfortable, Behavior is appropriate for age, jmb cooperative. Neurological: Level of Consciousness is awake, alert, obeys commands, Oriented to person, place, time, Lump Receiver are equal bilaterally Speech is normal, Facial symmetry appears normal, Facial symmetry: tongue is midline. Cardiovascular: Capillary refill < 3 seconds Heart tones S1 S2 present Pulses are all present. Rhythm is regular. Respiratory: Airway is patent Respiratory effort is even, unlabored, Respiratory pattern is regular, symmetrical, Breath sounds are clear bilaterally. GI: Abdomen is non- distended Bowel sounds present X 4 quads. Abd is soft and non tender X 4 quads. Derm: Skin is pink, warm & dry. Musculoskeletal: Range of motion intact in all extremities. 22:42 General: Patient instructed on discharge instructions. Patient asked if there were any [facility] questions regarding discharge, patient stated no. Patient signed discharge instructions. Patient discharged in stable condition. . Vital Signs: 19:44 BP 134 / 80; Pulse 100; Resp 16; Temp 98.4; Pulse Ox 100% ; Weight 70.76 kg; Height 5 elp ft. 10 in. (177.80 cm); Pain 0/10; 22:42 BP 130 / 78; Pulse 80; Resp 18; Temp 98.6(O); Pulse Ox 100% on R/A; Pain 0/10; jmb 19:44 Body Mass Index 22.38 (70.76 kg, 177.80 cm) [facility] Vitals: 19:44 Log In Time: November 05, 2016 at 19:41. [facility] ED Course: 19:42 Patient visited by Tessa Moreira PCA. elp 19:42 Zachariah Rueda is Private Physician. elp 19:42 Patient moved to Waiting elp 19:45 Patient visited by Tessa Moreira PCA. elp 19:45 Patient moved to Pre RCE elp 20:01 Triage Initiated rs3 20:32 Patient moved to I8 Oct 20:38 Axel Negrete DO is Attending Physician. cs11 20:38 Patient visited by Axel Negrete DO. cs11 21:25 Patient visited by Mala Bailey LPN. cp1 21:25 Cardiac Marker Panel Sent. cp1 21:25 MED Profile Sent. cp1 21:41 Patient visited by Mala Bailey LPN. cp1 22:05 Patient visited by Mala Bailey LPN. cp1 22:06 PSA Outpatient Referrals was scanned into [employer] and attached to record. jl 22:42 The patient / caregiver is instructed regarding the plan of care and ED course. jmb 22:42 No IV's were initiated during this patient's visit. No procedures done that require jmb assistance. 22:48 Patient name changed from Colt\S\Tariq\S\Kraeger\S\ to Colt\S\ \S\Kraeger. EDMS 22:50 [facility] [place] was scanned into [employer] and attached to record. zo 11/06 11:03 T-Sheet-- Draft Copy was scanned into [employer] and attached to record. gb Administered Medications: 11/05 21:39 Drug: OLANZapine 10 mg [olanzapine 5 mg tablet (2 tabs)] Route: PO; cp1 Order Results: Lab Order: MED Profile; SPEC'M 11/05/16 21:19 Test: GLUCOSE, FASTING; Value: 86; Range: 70-105; Units: MG/DL; Status: F Test: BLOOD UREA NITROGEN; Value: 26; Range: 7-18; Abnormal: Above high normal; Units: MG/DL; Status: F Test: CREATININE FOR GFR; Value: 1.03; Range: 0.70-1.30; Units: MG/DL; Status: F Test: GLOMERULAR FILTRATION RATE; Value: > 60.0; Range: >60; Status: F Test: SODIUM LEVEL; Value: 140; Range: 136-145; Units: MEQ/L; Status: F Test: POTASSIUM SERUM; Value: 4.6; Range: 3.5-5.1; Units: MEQ/L; Status: F Test: CHLORIDE LEVEL; Value: 103; Range: 98-107; Units: MEQ/L; Status: F Test: CARBON DIOXIDE LEVEL; Value: 31; Range: 21-32; Units: MEQ/L; Status: F Test: ANION GAP; Value: 6; Range: 8-16; Abnormal: Below low normal; Units: MEQ/L; Status: F Test: CALCIUM LEVEL; Value: 9.2; Range: 8.5-10.1; Units: MG/DL; Status: F Test Note: ; Units are mL/min/1.73 m2 Chronic Kidney Disease Staging per NKF: Stage I & II GFR >=60 Normal to Mildly Decreased Stage III GFR 30-59 Moderately Decreased Stage IV GFR 15-29 Severely Decreased Stage V GFR <15 Very Little GFR Left ESRD GFR <15 on PETROLEUM SUPPLY SPECIALIST Lab Order: Cardiac Marker Panel; SPEC'M 11/05/16 21:19 Test: CPK CREATINE PHOSPHOKINASE; Value: 205; Range: 39-308; Units: U/L; Status: F Test: CK-MB VALUE MASS; Value: 3.0; Range: 0.0-3.6; Units: NG/ML; Status: F Test: MB/CK RELATIVE INDEX; Value: 1.46; Range: < OR =4; Status: F Test: TROPONIN I; Value: < 0.02; Range: < 0.10; Units: NG/ML; Status: F Test Note: ; DIAGNOSIS CRITERIA MMB ng/ml Relative Index (RI) NON-AMI < or = 5 N/A CARTER ZONE > 5 < or = 4 AMI > 5 > 4 Outcome: 22:32 Discharge ordered by Provider. 11 22:42 Discharge Assessment: Patient awake, alert and oriented x 3. No cognitive and/or jmb functional deficits noted. Patient verbalized understanding of disposition instructions. Patient awake and alert. obeys commands, Oriented to person, place and time. Patient verbalized understanding of disposition instructions. Patient has no functional deficits. patient administered narcotics - no. The following High Risk Discharge criteria are identified: None. Discharged to home ambulatory. Condition: stable Condition: improved. Discharge instructions given to patient, Instructed on discharge instructions, follow up and referral plans. medication usage, Demonstrated understanding of instructions, medications, Pt was receptive of discharge instructions/ teaching. Prescriptions given X 1. No special radiology studies were completed. Property sent home with patient. 22:46 Patient left the ED. jmb Signatures: Dispatcher [employer] EDMS Angeli Jackson RN RN jan LaFontaine, Jon, PSA PSA Bella Blackwell, Francois Feldman Rosemary, RN RN rs3 Mala BaileyELDERLY SITTER ELDERLY SITTER cp1 Axel Negrete, DO DO cs11 Tessa Moreira, UNDERWRITING SALES REPRESENTATIVE UNDERWRITING SALES REPRESENTATIVE Avila Polo,RN RN jmb Chart Complete MTDD
--- NOTE | 2016-11-07 23:47 | EDDOCDS ---
Physician Documentation [facility] Name: Colt Wilson Age: 26 yrs Sex: Male : 1990 Arrival Date: 11/05/2016 Time: 19:37 Bed I8 / 16 Private MD: Zachariah Rueda D Disposition: 11/05/16 22:32 Discharged to Home/Self Care. Impression: Encounter for other general examination - chronic substance abuse. - Condition is Stable. - Prescriptions for Zyprexa 10 mg Oral Tablet - take 1 tablet by ORAL route once daily; 10 tablet. - Medication Reconciliation, Local Pharmacy Hours form. - Follow up: Private Physician; When: As previously arranged. - Problem is chronic. - Symptoms have improved. Historical: - Allergies: no known allergies; - Home Meds: 1. Xanax 0.5 mg Oral tab 1 tab twice a day (Last dose: 10/29/2016) - PMHx: drug abuse; - PSHx: Hernia repair- Umbilical; - Social history: Smoking status: Chewing Tobacco No barriers to communication noted, The patient speaks fluent Icelandic. - Family history: Not pertinent. - : The pt / caregiver states he / she is not on anticoagulants. Home medication list is obtained from the patient. - Exposure Risk Screening:: None identified. Vital Signs: 11/05 19:44 BP 134 / 80; Pulse 100; Resp 16; Temp 98.4; Pulse Ox 100% ; Weight 70.76 kg / 156 lbs; elp Height 5 ft. 10 in. (177.80 cm); Pain 0/10; 22:42 BP 130 / 78; Pulse 80; Resp 18; Temp 98.6(O); Pulse Ox 100% on R/A; Pain 0/10; jmb 19:44 Body Mass Index 22.38 (70.76 kg, 177.80 cm) elp MDM: 21:16 MED Profile Ordered. EDMS 21:16 Cardiac Marker Panel Ordered. EDMS 21:34 OLANZapine 10 mg PO now ordered. cs11 21:37 Consult PFS/PSA/Instrument Lens Grinder Apprentice ordered. cs11 22:04 MED Profile Reviewed. cs11 22:04 Cardiac Marker Panel Reviewed. cs11 22:05 Consult PFS/PSA/Instrument Lens Grinder Apprentice complete. cp1 22:06 PSA Outpatient Referrals was scanned into [employer] and attached to record. jl 22:50 Financial registration complete. zo 22:50 [facility] Payment Agreement was scanned into [employer] and attached to record. zo 11/06 11:03 T-Sheet-- Draft Copy was scanned into [employer] and attached to record. gb Administered Medications: 11/05 21:39 Drug: OLANZapine 10 mg [olanzapine 5 mg tablet (2 tabs)] Route: PO; cp1 Signatures: Dispatcher [employer] EDMS Dustin Pratt, PSA PSA jl Bella Lorenzo, Feliberto Reg gb Francois Zamudio Rosemary,RN RN rs3 Mala Bailey,HAY FARMER HAY FARMER cp1 Axel Negrete DO DO cs11 Avila HassanRN RN luciab The chart was reviewed and I authenticate all verbal orders and agree with the evaluation and treatment provided.Attachments: 22:50 [facility] Payment Agreement zo 11/06 11:03 T-Sheet-- Draft Copy gb Chart Complete MTDD
== END 2016-11-05 22:46 | disposition home or self-care (01) ==
LOC: M ED 19:37
DX: F19.10 Other psychoactive substance abuse, uncomplicated (principal); Z79.899 Other long term (current) drug therapy; F17.220 Nicotine dependence, chewing tobacco, uncomplicated

== ENCOUNTER 2017-06-15 14:49 | Inpatient (IN) | payer MEDICAID, OTHER ==
[~2017-06-15] VITALS: Ht 175.3 cm; Wt 66.6 kg
[2017-06-15] MEDS: NICOTINE 7 MG/24 HR TRANSDERMAL TD SCH (09:00)
[2017-06-15 16:11] LABS: MEAN CORPUSCULAR HGB CONC 34.4 g/dl (32.0-36.5); RED CELL DISTRIBUTION WIDTH 12.2 % (11.5-14.5); WHITE BLOOD COUNT 7.6 K/mm3 (4.0-10.0)
[2017-06-15 16:27] LABS: METHADONE URINE NEGATIVE (NEGATIVE)
[2017-06-15 16:35] LABS: ALBUMIN 4.5 GM/DL (3.2-5.2); ALBUMIN/GLOBULIN RATIO 1.29 (1.00-1.93); ALKALINE PHOSPHATASE 77 U/L (45-117); ALT/SGPT 29 U/L (12-78); ANION GAP 8 MEQ/L (8-16); AST/SGOT 34 U/L (15-37); BILIRUBIN,DIRECT 0.2 MG/DL (0.0-0.2); BILIRUBIN,TOTAL 0.8 MG/DL (0.2-1.0); BLOOD UREA NITROGEN 20 MG/DL (7-18); CARBON DIOXIDE LEVEL 28 MEQ/L (21-32); CHLORIDE LEVEL 102 MEQ/L (98-107); CREATININE FOR GFR 1.09 MG/DL (0.70-1.30); GLOMERULAR FILTRATION RATE > 60.0 (>60); GLUCOSE, FASTING 76 MG/DL (70-105); POTASSIUM SERUM 4.2 MEQ/L (3.5-5.1); SODIUM LEVEL 138 MEQ/L (136-145)
[2017-06-15] MEDS ORDERED: LORazepam 1 MG TAB PO STA (17:03)
[2017-06-15] MEDS ORDERED: MOM 30ML SUSPENSION UDC PO PRN (18:45)
[2017-06-15] MEDS ORDERED: ACETAMINOPHEN TAB 650MG DOSE (2X325MG) PO PRN (18:45)
[2017-06-15] MEDS ORDERED: MAALOX 30 ML SUSP *UDC PO PRN (18:45)
[2017-06-15 20:15] VITALS: BP 110/60
[2017-06-16 06:50] VITALS: BP 117/60
[2017-06-16] MEDS: NICOTINE 7 MG/24 HR TRANSDERMAL TD SCH (08:25)
--- NOTE | 2017-06-16 09:41 | HPEPDOC ---
Medical History and Physical Date of Admission Jun 15, 2017 at 18:43 History and Physical PCP: Dr Arcenio Rueda. ATTENDING: Dr. Jonh Rothman HPI: 27yoM admitted to [facility] for MDD, being medically examined today. No acute medical complaints today. Pt reports h/o penile discharge but states has not been having currently. Denies urinary complaints. Denies pain/abdominal pain. Denies any fevers, chills, weakness, fatigue, NOVA, CP, SOB, cough, palpitations, N/V/D or changes in bowel or bladder habits. PMHx: H/O polysubstance use H/O alcohol use PSHX: umbilical hernia repair 2006 SOCHX: Resides in: [facility]. Marital Status: SO Kids:4 Employment: unemployed Tobacco use: 1 ppd ETOH: 1 x/wk 2-3 beers. Illicit Drugs: Meth and marijuana daily. prescription opiates, cocaine. Rehab and [facility] in past. IV Drug Use: Denies Tattoos done unprofessionally: x1 FAMHX: Mother: Alive, COPD Father: Alive, anxiety, depression, substance use. Siblings: 1 brother Alive, substance use. Children: Alive, well Unexpected deaths due to medical reasons: 1 brother suicide. ROS: As noted in HPI, otherwise 11pt ROS of systems reviewed and unremarkable. PE: GEN: 27yoM, appears stated age. Well-nourished, well developed. No acute distress. Alert and oriented x 3. Pleasant, interactive. HEENT: Normocephalic, atraumatic. Pupils are equal, round, and reactive to light. Extraocular movements are intact. No nystagmus appreciated. Sclera are nonicteric. Conjunctiva without injection. Nose midline. Nasal turbinates without bogginess. EACs both patent BL. TMs both visualized and trivedi with good cone of light, no bulging or erythema. No facial asymmetry. Moist mucous membranes. Dentition poor. Pharynx pink and moist, no cobblestoning. Neck supple , trachea midline. No lymphadenopathy or thyromegaly appreciated. CHEST: Regular rate and rhythm, +S1, +S2 LUNGS: Clear to auscultation bilaterally. No wheezes, rales, or rhonchi. Breathing appears symmetric and easy. Patient is speaking in full sentences. No accessory muscle use. ABD: Round, soft, non-tender, non-distended. +Bowel sounds throughout. No rebound or guarding. No costovertebral angle tenderness. EXT: Pulses 2+ bilaterally dorsalis pedis and radial. No lower extremity edema appreciated. SKIN: [place], dry, warm. Capillary refill <2sec. No rashes. NEURO: Alert and oriented x 3. Cranial nerves III-XII are intact. No focal deficits appreciated. EKG: pending. A&P: 27yoM admitted to [facility] for MDD 1. Psych. Plan per Psychiatry. Obtain baseline EKG to assure the safety of psychiatric medications as they can prolong the QT interval. 2. Nicotine dependence. Patch available. 3. Tattoo done unprofessionally. Patient agrees to HIV and hepatitis screening. 4. Follow up. No Primary Care Provider. Will attempt to establish PCP on discharge. 5. Substance use. Per psychiatry. 6. Patient is agreeable to STI screening. HIV/hepatitis pending. RPR. Gonorrhea/ chlamydia. Pending. 7. Staff member Kei present on exam. Vital Signs Vital Signs Date Time Temp Pulse Resp B/P (MAP) Pulse Ox O2 Delivery O2 Flow Rate FiO2 06/16/17 06:50 98.0 58 16 117/60 (79) 06/15/17 20:15 97 Room Air Laboratory Data Labs 24H Laboratory Tests 2 06/15/17 15:41: Anion Gap 8, Glomerular Filtration Rate > 60.0, Calcium Level 9.0, Aspartate Amino Transf (AST/SGOT) 34, Alanine Aminotransferase (ALT/SGPT) 29, Alkaline Phosphatase 77, Total Bilirubin 0.8, Direct Bilirubin 0.2, Total Protein 8.0, Albumin 4.5, Albumin/Globulin Ratio 1.29, Thyroid Stimulating Hormone (TSH) 0.636, Salicylates Level 2.0L, Urine Amphetamines Screen POSITIVEH, Urine Benzodiazepines Screen NEGATIVE, Urine Opiates Screen NEGATIVE, Urine Methadone Screen NEGATIVE, Acetaminophen Level < 2.0L, Urine Barbiturates Screen NEGATIVE , Urine Phencyclidine Screen NEGATIVE, Urine Cocaine Metabolite Screen NEGATIVE , Urine Cannabinoids Screen POSITIVEH, Ethyl Alcohol Level < 0.003 CBC/BMP Laboratory Tests 06/15/17 15:41 Red Blood Count 5.22, Mean Corpuscular Volume 93.0, Mean Corpuscular Hemoglobin 32.0, Mean Corpuscular Hemoglobin Concent 34.4, Red Cell Distribution Width 12.2 Home Medications No Active Prescriptions or Reported Meds Allergies Coded Allergies: No Known Allergies (Unverified , 06/15/17) Ariana Fisher Jun 16, 2017 09:41
[2017-06-16 11:27] LABS: CALCIUM OXALATE CRYSTALS SMALL
[2017-06-16] MEDS: NICOTINE POLACRILEX 2 MG GUM PO PRN (12:13)
[2017-06-16 18:00] VITALS: BP 120/61
--- NOTE | 2017-06-16 20:59 | ECGEPIP ---
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 Electronically Signed On 06-16-2017 20:59:15 EDT by Jonh Brian
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
[2017-06-17 06:28] VITALS: BP 98/54
[2017-06-17] MEDS: NICOTINE POLACRILEX 2 MG GUM PO PRN ×3 (12:10→22:07)
[2017-06-17] MEDS: SERTRALINE HCL 50 MG TAB PO SCH (13:21)
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
[2017-06-17 18:00] VITALS: BP 129/57
[2017-06-18 07:16] VITALS: BP 128/76
[2017-06-18] MEDS: SERTRALINE HCL 50 MG TAB PO SCH (08:51)
[2017-06-18] MEDS: hydrOXYzine 50 MG TAB PO PRN (08:51)
--- NOTE | 2017-06-18 09:43 | ECGEPIP ---
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 Body habitus versus lead placement. Otherwise within normal limits for age No change from 06/16/17. Electronically Signed On 06-18-2017 9:43:33 EDT by Marcel Tony
[2017-06-18] MEDS: NICOTINE POLACRILEX 2 MG GUM PO PRN ×2 (14:25→19:18)
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
[2017-06-18 18:00] VITALS: BP 108/55
[2017-06-19 06:29] VITALS: BP 102/52
[2017-06-19] MEDS: SERTRALINE HCL 50 MG TAB PO SCH (08:33)
[2017-06-19] MEDS: NICOTINE POLACRILEX 2 MG GUM PO PRN (11:27)
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
[2017-06-19 18:00] VITALS: BP 117/58
[2017-06-19] MEDS: hydrOXYzine 50 MG TAB PO PRN (22:00)
[2017-06-20 07:05] VITALS: BP 138/57
[2017-06-20] MEDS: SERTRALINE HCL 50 MG TAB PO SCH (08:30)
[2017-06-20 18:00] VITALS: BP 137/69
[2017-06-21 06:20] VITALS: BP 112/62
[2017-06-21] MEDS: SERTRALINE HCL 50 MG TAB PO SCH (09:26)
[2017-06-21] MEDS ORDERED: SERT50TA PO (09:50)
[2017-06-21] MEDS ORDERED: NICO2GUM62 PO (09:50)
[2017-06-21] MEDS ORDERED: HYDRO50TAB PO (09:50)
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
== END 2017-06-21 12:30 | disposition home or self-care (01) | DRG 755 ==
LOC: M ED 14:49 → M ED INP 18:43 → M PSY 20:10
PROVIDERS: ADMIT Psychiatry & Neurology Psychiatry; ATTEND Psychiatry & Neurology Psychiatry
DX: F43.9 Reaction to severe stress, unspecified (principal); F32.9 Major depressive disorder, single episode, unspecified; F43.21 Adjustment disorder with depressed mood; F15.90 Other stimulant use, unspecified, uncomplicated; F12.90 Cannabis use, unspecified, uncomplicated; F17.200 Nicotine dependence, unspecified, uncomplicated

== ENCOUNTER 2020-02-16 23:23 | Emergency (ER) | payer OTHER ==
[~2020-02-16] VITALS: Ht 175.3 cm; Wt 72.7 kg
[~2020-02-16 23:23] MED LIST: HYDR1TAB33 PO; NICO2GUM54 PO; SERT-141 PO
[2020-02-17 00:20] LABS: HEMOGLOBIN 16.8 g/dl (13.5-17.5); MEAN CORPUSCULAR VOLUME 88.6 fl (80.0-96.0); PLATELET COUNT, AUTOMATED 289 10^3/uL (150-450); RED BLOOD COUNT 5.42 10^6/uL (4.30-6.10); WHITE BLOOD COUNT 6.3 10^3/uL (4.0-10.0)
[2020-02-17 00:51] LABS: AMPHETAMINES LEVEL URINE POSITIVE (NEGATIVE); BARBITURATES URINE NEGATIVE (NEGATIVE); BENZODIAZEPINES URINE NEGATIVE (NEGATIVE); CANNABINOIDS URINE POSITIVE (NEGATIVE); COCAINE METABOLITE URINE NEGATIVE (NEGATIVE); METHADONE URINE NEGATIVE (NEGATIVE); OPIATES URINE NEGATIVE (NEGATIVE); PHENCYCLIDINE URINE NEGATIVE (NEGATIVE)
[2020-02-17 01:02] LABS: ACETAMINOPHEN LEVEL < 2.0 UG/ML (10.0-30.0); ALBUMIN 4.7 GM/DL (3.2-5.2); ALT/SGPT 24 U/L (12-78); BILIRUBIN,DIRECT 0.3 MG/DL (0.0-0.2); BILIRUBIN,TOTAL 1.1 MG/DL (0.2-1.0); BLOOD UREA NITROGEN 13 MG/DL (7-18); CALCIUM LEVEL 9.7 MG/DL (8.5-10.1); CARBON DIOXIDE LEVEL 24 MEQ/L (21-32); CHLORIDE LEVEL 102 MEQ/L (98-107); CREATININE FOR GFR 1.04 MG/DL (0.70-1.30); ETHYL ALCOHOL (ETHANOL) < 0.003 % (0.000-0.010); GLOMERULAR FILTRATION RATE > 60.0 (>60); GLUCOSE, FASTING 98 MG/DL (70-100); POTASSIUM SERUM 4.4 MEQ/L (3.5-5.1); SALICYLATE LEVEL < 1.7 MG/DL (5.0-30.0); SODIUM LEVEL 134 MEQ/L (136-145); TOTAL PROTEIN 8.1 GM/DL (6.4-8.2)
[2020-02-17 02:35] VITALS: BP 122/67
--- NOTE | 2020-02-17 06:30 | ECGEPIP ---
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
== END 2020-02-17 02:30 | disposition home or self-care (01) ==
LOC: M ED 23:23
DX: F15.10 Other stimulant abuse, uncomplicated (principal); F33.9 Major depressive disorder, recurrent, unspecified; R94.31 Abnormal electrocardiogram [ECG] [EKG]; Z79.899 Other long term (current) drug therapy
CPT/HCPCS: 36415; 80048; 80076; 80307; 84443; 85027; 93005; 99284; G0480